=== PATIENT | male | born 1960 | race Caucasian/White ===

== ENCOUNTER → 2018-07-16 | Outpatient (REF) | payer MEDICARE ==
[~2018-07-16] MED LIST: BUTRANS10 MCG/HR TD; DICLOFENAC75 MG OR; DILANTIN100 MG OR; DILANTIN100 MG PO; ERYTHROMYCIN O3.5 GM OU; FIORICET PO; LAMICTAL100 M1 OR; LAMICTAL100 M1 PO; LAMICTAL200 M1 OR; LAMICTAL200 MG OR; LORTAB 10 PO; LORTAB 1010 MG PO; LORTAB 5 OR; PHENYTOIN EX100 MG PO; SILVADENE1 % EX; ULTRAM50 M1 PO; [UNRECOGNIZED DRUG - OTHER] IV
== END | disposition home or self-care (01) ==
LOC: DI 12:09
PROVIDERS: ATTEND Internal Medicine Hematology
DX: E75.22 Gaucher disease (principal)